=== PATIENT | male | born 1935 | race Caucasian/White ===

== ENCOUNTER 2019-08-23 11:56 | Emergency (ER) | payer MEDICARE, BC ==
--- NOTE | 2019-08-23 12:22 | EDM.PDOC ---
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 L posterior thigh, L elbow, posterior head Pain Score (Numeric/FACES): 5 - Related Data Allergies Allergy/AdvReac Type Severity Reaction Status Date / Time No Known Allergies Allergy Verified 08/23/19 12:11 Home Meds: Home Meds Atenolol 25 mg PO DAILY 08/05/18 [History] Lisinopril/Hydrochlorothiazide [Lisinopril-Hctz 20-12.5 mg Tab] 1 each PO DAILY 08/08/18 [History] Past Medical History Cardiovascular History: Reports: Hypertension, SOB on Exertion Respiratory History: Reports: None Gastrointestinal History: Reports: Other (See Below) Other Gastrointestinal History: HAS MIGUEL ANGEL. GROIN HERNIA'S AT PRESENT TIME. Genitourinary History: Reports: None Musculoskeletal History: Reports: Arthritis Neurological History: Reports: Other (See Below) Other Neuro History: HX SUBDURAL HEMATOMA. Psychiatric History: Reports: None Endocrine/Metabolic History: Reports: None Hematologic History: Reports: None Immunologic History: Reports: None Oncologic (Cancer) History: Reports: Basal Cell Carcinoma Dermatologic History: - Infectious Disease History Infectious Disease History: Reports: Chicken Pox, Measles, Mumps, Shingles - Past Surgical History Cardiovascular Surgical History: Reports: None GI Surgical History: Reports: Colonoscopy, Hernia, Abdominal Other GI Surgeries/Procedures: UMBILICAL HERNIA REPAIR Musculoskeletal Surgical History: Reports: Hip Replacement, Knee Replacement, Other (See Below) Other Musculoskeletal Surgeries/Procedures:: RIGHT HIP REPLACEMENT AND RIGHT KNEE REPLACEMENT IN PAST. Social & Family History - Family History Family Medical History: Noncontributory - Caffeine Use Caffeine Use: Reports: None ED ROS GENERAL - Review of Systems Review Of Systems: See Below Constitutional: Reports: No Symptoms HEENT: Reports: No Symptoms Respiratory: Reports: No Symptoms Cardiovascular: Reports: No Symptoms GI/Abdominal: Reports: No Symptoms : Reports: No Symptoms Musculoskeletal: Denies: Neck Pain, Shoulder Pain, Arm Pain, Back Pain, Leg Pain , Foot Pain, Muscle Pain Skin: Reports: No Symptoms ED EXAM, GENERAL - Physical Exam Exam: See Below Exam Limited By: No Limitations General Appearance: Alert, No Apparent Distress Ears: Normal External Exam, Normal TMs Nose: Normal Inspection Throat/Mouth: Normal Inspection, Normal Oropharynx Head: Normocephalic, Other (soft tissue swelling and abrasins at scalp on posterior side of his head. ) Neck: Normal Inspection, Supple, Non-Tender, Full Range of Motion Respiratory/Chest: No Respiratory Distress Cardiovascular: Normal Peripheral Pulses, Regular Rate, Rhythm, No Edema GI/Abdominal: Normal Bowel Sounds, Soft, Non-Tender Back Exam: Normal Inspection, Full Range of Motion Extremities: Normal Inspection, Other (tender over posterior side of left knee and thigh , no deformitis, ROM at left knee is full, no joint instabilities .) Neurological: Alert, Oriented, CN II-XII Intact, Normal Reflexes, No Motor/ Sensory Deficits Course - Vital Signs Text/Narrative:: labs and xray results were explained to pt . pt has traumatic fracture injury to left femur. also scalp hematoma and abrasion to left elbow. Dr. whitaker / [facility] was consulted and was in acceptance of pt care. Last Recorded V/S: Last Vital Signs Temp 36.4 C 08/23/19 11:56 Pulse 95 08/23/19 11:56 Resp 18 08/23/19 11:56 BP 153/62 H 08/23/19 11:56 Pulse Ox 99 08/23/19 11:56 - Orders/Labs/Meds Orders: Active Orders 24 hr Category Date Time Status Femur Min 2V Lt [CR] Stat Exams 08/23/19 12:23 Taken CBC WITH AUTO DIFF [HEME] Stat Lab 08/23/19 13:24 Ordered COMPREHENSIVE METABOLIC PN,CMP [CHEM] Stat Lab 08/23/19 13:24 Ordered Sodium Chloride 0.9% @ 125 MLS/HR (1000ml) Med 08/23/19 13:30 Ordered Sodium Chloride 0.9% [Normal Saline] 1,000 ml IV ASDIRECTED Departure - Departure Time of Disposition: 13:28 Disposition: DC/Tfer to [facility] Clinical Impression: Femur fracture, left - Discharge Information Referrals: Ostmo,Juan Carlos, MD [Primary Care Provider] - - My Orders Last 24 Hours: My Active Orders 08/23/19 12:23 Femur Min 2V Lt [CR] Stat 08/23/19 13:24 CBC WITH AUTO DIFF [HEME] Stat COMPREHENSIVE METABOLIC PN,CMP [CHEM] Stat 08/23/19 13:30 Sodium Chloride 0.9% @ 125 MLS/HR (1000ml) Sodium Chloride 0.9% [Normal Saline] 1,000 ml IV ASDIRECTED - Assessment/Plan Last 24 Hours: My Active Orders 08/23/19 12:23 Femur Min 2V Lt [CR] Stat 08/23/19 13:24 CBC WITH AUTO DIFF [HEME] Stat COMPREHENSIVE METABOLIC PN,CMP [CHEM] Stat 08/23/19 13:30 Sodium Chloride 0.9% @ 125 MLS/HR (1000ml) Sodium Chloride 0.9% [Normal Saline] 1,000 ml IV ASDIRECTED
[2019-08-23] MEDS ORDERED: Sodium Chloride 0.9% 1,000 ML IV SCH (13:30)
--- NOTE | 2019-08-23 13:44 | CR ---
INDICATION: Fall with thigh pain going to knee. LEFT FEMUR: Four images of the left femur were obtained with frontal and lateral projections and revealed overall demineralization suggesting osteoporosis or osteomalacia - correlate clinically. Severe degenerative changes are noted at the left hip joint with virtually no remaining joint space, sclerosis, and some subchondral cystic changes present. More importantly, there is an oblique hairline fracture through the base of the femoral neck, extending through the intertrochanteric area into the proximal shaft of the left femur - in anatomic position and alignment. Mild degenerative changes are noted at the knee joint. Calcifications are noted in the iliac and femoral arteries. IMPRESSION: 1. Hairline fracture extending from the femoral neck laterally to the proximal shaft of the left femur medially with anatomic position and alignment. 2. 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 3. Demineralization. Report was called to Dr. Aime Shah at 1308 hours on 08/23/19. [facility]
[2019-08-23] MEDS ORDERED: Morphine 2 MG/ML Syringe IVPUSH ONE (15:06)
== END 2019-08-23 15:25 ==
LOC: FB.ED 11:56
DX: S72.002A Fracture of unspecified part of neck of left femur, initial encounter for closed fracture (principal); S00.03XA Contusion of scalp, initial encounter; S50.312A Abrasion of left elbow, initial encounter; I10 Essential (primary) hypertension; Z79.899 Other long term (current) drug therapy; W11.XXXA Fall on and from ladder, initial encounter
CPT/HCPCS: 73552; 80053; 85025; 96361; 96374; 99283; J2270; J7030

== ENCOUNTER 2022-05-22 19:43 | Emergency (ER) | payer MEDICARE, BC ==
[2022-05-22] MEDS ORDERED: Acetaminophen/HYDROcodone 325-5 MG Tab PO ONE (19:44)
[2022-05-22] MEDS ORDERED: Sodium Chloride 0.9% 10 ML Syringe FLUSH PRN (19:50)
[2022-05-22] MEDS: Morphine 2 MG/ML SYRINGE IVPUSH ONE (19:55)
[2022-05-22] MEDS: Ondansetron 4 MG/2 ML SDV IVPUSH STA (19:55)
[2022-05-22] MEDS: Morphine 2 MG/ML SYRINGE IVPUSH STA (20:15)
[2022-05-22] MEDS: hydrALAZINE 20 MG/ML SDV IVPUSH STA (20:30)
[2022-05-22] MEDS: Morphine 2 MG/ML SYRINGE ONE (20:31)
[2022-05-22] MEDS: Ondansetron 4 MG/2 ML SDV ONE (20:31)
[2022-05-22 20:37] LABS: ESTIMATED GFR 72 mL/min (>60)
[2022-05-22] MEDS: hydrALAZINE 20 MG/ML SDV ONE (20:37)
[2022-05-22] MEDS: Acetaminophen/oxyCODONE 325-5 MG Tab PO STA (21:43)
[2022-05-22] MEDS: Ketorolac 30 MG/ML SDV IM ONE (21:46)
[2022-05-22] MEDS: Ketorolac 30 MG/ML SDV IVPUSH ONE (21:47)
[2022-05-22] MEDS: Apixaban 5 MG Tab PO STA (21:59)
== END 2022-05-22 22:30 | disposition home or self-care (01) ==
LOC: FB.ED 19:43
DX: M25.511 Pain in right shoulder (principal); I16.9 Hypertensive crisis, unspecified; I10 Essential (primary) hypertension; R79.89 Other specified abnormal findings of blood chemistry; Z79.899 Other long term (current) drug therapy
CPT/HCPCS: 36415; 71045; 73030; 80053; 84484; 85025; 85379; 85610; 85730; 93005; 96374; 96375; 99284; A9270; J0360; J1885; J2270; J2405